=== PATIENT | female | born 1960 | race Caucasian/White ===

== ENCOUNTER → 2023-10-15 14:45 | Outpatient (REF) | payer OTHER, SELFPAY | LOC: RAD 14:45 | PROVIDERS: ATTENDING PHYSICIAN Nurse Practitioner Adult Health; FAMILY PHYSICIAN Family Medicine | DX: C50.512 Malignant neoplasm of lower-outer quadrant of left female breast (principal); M81.8 Other osteoporosis without current pathological fracture | CPT/HCPCS: 93971 ==

== ENCOUNTER → 2023-10-20 10:29 | Outpatient (REF) | payer OTHER, SELFPAY | LOC: WDC 10:29 | PROVIDERS: ATTENDING PHYSICIAN Nurse Practitioner Adult Health; FAMILY PHYSICIAN Family Medicine | DX: Z85.3 Personal history of malignant neoplasm of breast (principal); C50.512 Malignant neoplasm of lower-outer quadrant of left female breast; R59.9 Enlarged lymph nodes, unspecified | CPT/HCPCS: 76642 ==

== ENCOUNTER → 2023-10-21 12:11 | Outpatient (REF) | payer OTHER, SELFPAY | LOC: HWRAD 12:11 | PROVIDERS: ATTENDING PHYSICIAN Nurse Practitioner Adult Health; FAMILY PHYSICIAN Family Medicine; REFERRING PHYSICIAN Family Medicine | DX: C50.512 Malignant neoplasm of lower-outer quadrant of left female breast (principal); M81.8 Other osteoporosis without current pathological fracture | CPT/HCPCS: 71260; 74177; Q9967 ==

== ENCOUNTER → 2023-10-27 07:55 | Outpatient (REF) | payer OTHER, SELFPAY | LOC: WDC 07:55 | PROVIDERS: ATTENDING PHYSICIAN Nurse Practitioner Adult Health | DX: N63.32 Unspecified lump in axillary tail of the left breast (principal) | CPT/HCPCS: 88305; 19083; 88341; 88342; 88360; A4648 ==

== ENCOUNTER → 2023-11-04 09:54 | Outpatient (REF) | payer OTHER, SELFPAY | LOC: RCS 09:54 | PROVIDERS: ATTENDING PHYSICIAN Internal Medicine Hematology & Oncology; FAMILY PHYSICIAN Family Medicine | DX: Z51.11 Encounter for antineoplastic chemotherapy (principal) | CPT/HCPCS: 93306; 93356 ==

== ENCOUNTER → 2023-11-08 09:48 | Outpatient (REF) | payer OTHER, SELFPAY | LOC: PET 09:48 | PROVIDERS: ATTENDING PHYSICIAN Internal Medicine Hematology & Oncology | DX: C50.512 Malignant neoplasm of lower-outer quadrant of left female breast (principal) | CPT/HCPCS: 78815; A9552 ==

== ENCOUNTER → 2023-11-27 07:52 | Outpatient (REF) | payer OTHER, SELFPAY | LOC: MRI 07:52 | PROVIDERS: ATTENDING PHYSICIAN Internal Medicine Hematology & Oncology; FAMILY PHYSICIAN Family Medicine | DX: C50.512 Malignant neoplasm of lower-outer quadrant of left female breast (principal); M81.8 Other osteoporosis without current pathological fracture; C78.7 Secondary malignant neoplasm of liver and intrahepatic bile duct; C79.51 Secondary malignant neoplasm of bone | CPT/HCPCS: 70553; A9575 ==

== ENCOUNTER → 2023-12-01 07:31 | Outpatient (REF) | payer OTHER, SELFPAY | LOC: RAD 07:31 | PROVIDERS: ATTENDING PHYSICIAN Internal Medicine Hematology & Oncology; FAMILY PHYSICIAN Physician Assistant Medical | DX: C50.512 Malignant neoplasm of lower-outer quadrant of left female breast (principal); M81.8 Other osteoporosis without current pathological fracture; C78.7 Secondary malignant neoplasm of liver and intrahepatic bile duct; C79.51 Secondary malignant neoplasm of bone | CPT/HCPCS: 76700 ==

== ENCOUNTER → 2023-12-16 15:15 | Outpatient (REF) | payer OTHER, SELFPAY | LOC: RAD 15:15 | PROVIDERS: ATTENDING PHYSICIAN Nurse Practitioner Family; FAMILY PHYSICIAN Family Medicine | DX: R22.32 Localized swelling, mass and lump, left upper limb (principal) | CPT/HCPCS: 93971 ==

== ENCOUNTER 2024-01-04 06:53 | Outpatient (RCR) | payer OTHER, SELFPAY | END 2024-01-04 23:59 | disposition home or self-care (01) | LOC: RPT 06:53 | PROVIDERS: ATTENDING PHYSICIAN Internal Medicine Hematology & Oncology; FAMILY PHYSICIAN Family Medicine | DX: C50.512 Malignant neoplasm of lower-outer quadrant of left female breast (principal); I97.2 Postmastectomy lymphedema syndrome; Z73.6 Limitation of activities due to disability | CPT/HCPCS: 97163; 97530; 97535 ==

== ENCOUNTER → 2024-01-26 10:48 | Outpatient (REF) | payer OTHER, SELFPAY | LOC: PET 10:48 | PROVIDERS: ATTENDING PHYSICIAN Internal Medicine Hematology & Oncology | DX: C50.512 Malignant neoplasm of lower-outer quadrant of left female breast (principal) | CPT/HCPCS: 78815; A9552 ==

== ENCOUNTER 2024-01-31 10:09 | Outpatient (RCR) | payer OTHER, SELFPAY | END 2024-01-31 23:59 | disposition home or self-care (01) | LOC: RPT 10:09 | PROVIDERS: ATTENDING PHYSICIAN Internal Medicine Hematology & Oncology; FAMILY PHYSICIAN Family Medicine | DX: I97.2 Postmastectomy lymphedema syndrome (principal); C50.512 Malignant neoplasm of lower-outer quadrant of left female breast; Z73.6 Limitation of activities due to disability | CPT/HCPCS: 29584; 97140; 97530; 97535 ==

== ENCOUNTER → 2024-03-02 08:19 | Outpatient (REF) | payer OTHER, SELFPAY | LOC: MRI 08:19 | PROVIDERS: ATTENDING PHYSICIAN Internal Medicine Hematology & Oncology; FAMILY PHYSICIAN Family Medicine | DX: C50.512 Malignant neoplasm of lower-outer quadrant of left female breast (principal); M81.8 Other osteoporosis without current pathological fracture; C78.7 Secondary malignant neoplasm of liver and intrahepatic bile duct; C79.51 Secondary malignant neoplasm of bone; R22.32 Localized swelling, mass and lump, left upper limb | CPT/HCPCS: 74183; A9575 ==

== ENCOUNTER → 2024-03-08 17:04 | Outpatient (REF) | payer OTHER, SELFPAY | LOC: RCS 17:04 | PROVIDERS: ATTENDING PHYSICIAN Internal Medicine Hematology & Oncology; FAMILY PHYSICIAN Family Medicine | DX: C50.512 Malignant neoplasm of lower-outer quadrant of left female breast (principal); M81.8 Other osteoporosis without current pathological fracture; C78.7 Secondary malignant neoplasm of liver and intrahepatic bile duct; C79.51 Secondary malignant neoplasm of bone; R22.32 Localized swelling, mass and lump, left upper limb | CPT/HCPCS: 93306 ==

== ENCOUNTER → 2024-06-09 09:39 | Outpatient (REF) | payer OTHER, SELFPAY | LOC: PET 09:39 | PROVIDERS: ATTENDING PHYSICIAN Internal Medicine Hematology & Oncology | DX: C50.512 Malignant neoplasm of lower-outer quadrant of left female breast (principal) | CPT/HCPCS: 78815; A9552 ==

== ENCOUNTER → 2024-09-04 09:55 | Outpatient (REF) | payer OTHER, SELFPAY ==
[2024-09-04 10:24] VITALS: BP 121/87; BP_SYST 87
[2024-09-04 12:05] VITALS: BP 103/76; BP_SYST 79
[2024-09-04 13:01] LABS: Body Fluid Mononuclear 83.3 %; Body Fluid Polymorphonuclear 16.7 %; Body Fluid WBC 186 /CUMM
[2024-09-04 13:24] LABS: Body Fluid Second Tech CF
[2024-09-04 15:26] LABS: Body Fluid Albumin < 1.0 g/dl
== END ==
LOC: RADI 09:55
PROVIDERS: ATTENDING PHYSICIAN Internal Medicine Hematology & Oncology; FAMILY PHYSICIAN Family Medicine
DX: R18.8 Other ascites (principal); Z85.3 Personal history of malignant neoplasm of breast
CPT/HCPCS: 88305; 49083; 82042; 88112; 88341; 88342; 88360; 89051

== ENCOUNTER → 2024-09-18 08:04 | Outpatient (REF) | payer OTHER, SELFPAY | LOC: PET 08:04 | PROVIDERS: ATTENDING PHYSICIAN Internal Medicine Hematology & Oncology | DX: C50.512 Malignant neoplasm of lower-outer quadrant of left female breast (principal) | CPT/HCPCS: 78815; A9552 ==

== ENCOUNTER → 2024-09-22 12:20 | Outpatient (REF) | payer OTHER, SELFPAY ==
[2024-09-22 12:45] VITALS: BP 109/84; BP_SYST 90
[2024-09-22 14:45] LABS: Body Fluid Albumin < 1.0 g/dl
[2024-09-22 15:15] LABS: Body Fluid Mononuclear 87.8 %; Body Fluid Polymorphonuclear 12.2 %; Body Fluid WBC 147 /CUMM
[2024-09-22 15:16] LABS: Body Fluid Second Tech FB
== END ==
LOC: RADI 12:20
PROVIDERS: ATTENDING PHYSICIAN Internal Medicine Hematology & Oncology; FAMILY PHYSICIAN Physician Assistant Medical
DX: C80.1 Malignant (primary) neoplasm, unspecified (principal); R18.0 Malignant ascites
CPT/HCPCS: 88305; 49083; 82042; 88112; 88341; 88342; 88360; 89051

== ENCOUNTER → 2024-09-26 10:12 | Outpatient (REF) | payer OTHER, SELFPAY | LOC: RCS 10:12 | PROVIDERS: ATTENDING PHYSICIAN Internal Medicine Hematology & Oncology; FAMILY PHYSICIAN Physician Assistant Medical | DX: M81.8 Other osteoporosis without current pathological fracture (principal); C79.51 Secondary malignant neoplasm of bone; C78.7 Secondary malignant neoplasm of liver and intrahepatic bile duct; R22.32 Localized swelling, mass and lump, left upper limb; D63.0 Anemia in neoplastic disease | CPT/HCPCS: 93306; 93356 ==

== ENCOUNTER → 2024-09-28 08:58 | Outpatient (REF) | payer OTHER, SELFPAY ==
[2024-09-28 09:15] VITALS: BP 109/72; BP_SYST 74; BMI 23.2
[2024-09-28] MEDS: ANCEF 5 IV (09:42)
[2024-09-28 11:00] VITALS: BP 100/67; BP 104/67; BP_SYST 86
== END ==
LOC: RADI 08:58
PROVIDERS: ATTENDING PHYSICIAN Internal Medicine Hematology & Oncology; FAMILY PHYSICIAN Physician Assistant Medical
DX: C50.512 Malignant neoplasm of lower-outer quadrant of left female breast (principal); C79.51 Secondary malignant neoplasm of bone; C78.7 Secondary malignant neoplasm of liver and intrahepatic bile duct
CPT/HCPCS: 36561; 76937; 77001; 99152; 99153

== ENCOUNTER → 2024-10-10 10:28 | Outpatient (REF) | payer OTHER, SELFPAY | LOC: MRI 10:28 | PROVIDERS: ATTENDING PHYSICIAN Student in an Organized Health Care Education/Training Program; FAMILY PHYSICIAN Physician Assistant Medical | DX: R79.89 Other specified abnormal findings of blood chemistry (principal) | CPT/HCPCS: 76391 ==

== ENCOUNTER → 2024-10-16 08:46 | Outpatient (REF) | payer OTHER, SELFPAY | LOC: MRI 08:46 | PROVIDERS: ATTENDING PHYSICIAN Student in an Organized Health Care Education/Training Program; FAMILY PHYSICIAN Physician Assistant Medical | DX: R79.89 Other specified abnormal findings of blood chemistry (principal); C78.7 Secondary malignant neoplasm of liver and intrahepatic bile duct; C50.919 Malignant neoplasm of unspecified site of unspecified female breast | CPT/HCPCS: 74183; A9575 ==

== ENCOUNTER → 2024-10-17 09:04 | Outpatient (REF) | payer OTHER, SELFPAY ==
[2024-10-17 09:20] VITALS: BP 103/68; BP_SYST 81
[2024-10-17 10:00] VITALS: BP 106/68
[2024-10-17 12:03] LABS: Body Fluid Mononuclear 88.7 %; Body Fluid Polymorphonuclear 11.3 %; Body Fluid WBC 98 /CUMM
[2024-10-17 12:04] LABS: Body Fluid Second Tech CF
== END ==
LOC: RADI 09:04
PROVIDERS: ATTENDING PHYSICIAN Internal Medicine Hematology & Oncology; FAMILY PHYSICIAN Family Medicine
DX: C80.1 Malignant (primary) neoplasm, unspecified (principal); R18.0 Malignant ascites
CPT/HCPCS: 49083; 87015; 87070; 87205; 88112; 89051

== ENCOUNTER → 2024-10-18 10:06 | Outpatient (REF) | payer OTHER, SELFPAY ==
[2024-10-18 10:33] LABS: % Basophils 1.1 % (0-2); % Eosinophils 3.6 % (0-6); % Immature Granulocytes 0.7 % (0-0.5); % Lymphocytes 34.2 % (20.5-51.1); % Monocytes 12.4 % (1.7-9.3); Absolute Eosinophils 0.1 10^3/uL (0-0.7); Absolute Lymphocytes 0.9 10^3/uL (1.2-3.4); Absolute Monocytes 0.3 10^3/uL (0.1-0.6); Absolute Neutrophils 1.3 10^3/uL (1.4-6.5); Hematocrit 32.5 % (37.0-47.0); Hemoglobin 10.8 g/dL (12.0-16.0); Mean Corp Hgb Conc. 33.2 g/dL (33.0-37.0); Mean Corpuscular Hgb 33.9 pg (27.0-31.0); Mean Corpuscular Volume 101.9 fL (81.0-99.0); Mean Platelet Volume 10.7 fL (7.4-10.4); Nucleated Red Blood Cells % 0 %; Platelet Count 191 10^3/uL (130-400); Red Blood Cell Count 3.19 10^6/uL (4.20-5.40); Red Cell Dist. Width 14.1 % (11.5-14.5); White Blood Cell Count 2.8 10^3/uL (4.8-10.8)
[2024-10-18 10:46] LABS: ALT (SGPT) 39 U/L (0-35); AST (SGOT) 52 U/L (14-36); Albumin 2.8 g/dl (3.5-5.0); Alkaline Phosphatase 294 U/L (38-126); Blood Urea Nitrogen 14 mg/dl (7-17); Calcium 8.3 mg/dl (8.4-10.2); Carbon Dioxide 27 mmol/L (22-30); Chloride 111 mmol/L (98-107); Glucose 122 mg/dl (70-99); Potassium 3.5 mmol/L (3.5-5.1); Sodium 140 mmol/L (135-145); Total Bilirubin 1.1 mg/dl (0.2-1.3); Total Protein 5.9 g/dl (6.3-8.2); eGFR > 60.00
== END ==
LOC: REG 10:06
PROVIDERS: ATTENDING PHYSICIAN Internal Medicine Hematology & Oncology; FAMILY PHYSICIAN Family Medicine
DX: C50.512 Malignant neoplasm of lower-outer quadrant of left female breast (principal); M81.8 Other osteoporosis without current pathological fracture; C79.51 Secondary malignant neoplasm of bone; C78.7 Secondary malignant neoplasm of liver and intrahepatic bile duct; R22.32 Localized swelling, mass and lump, left upper limb; D63.0 Anemia in neoplastic disease
CPT/HCPCS: 36415; 80053; 85025

== ENCOUNTER → 2024-12-27 17:22 | Outpatient (REF) | payer OTHER, SELFPAY | LOC: RCS 17:22 | PROVIDERS: ATTENDING PHYSICIAN Internal Medicine Hematology & Oncology; FAMILY PHYSICIAN Physician Assistant Medical | DX: C79.51 Secondary malignant neoplasm of bone (principal); C78.7 Secondary malignant neoplasm of liver and intrahepatic bile duct; R22.32 Localized swelling, mass and lump, left upper limb; D63.0 Anemia in neoplastic disease; C50.512 Malignant neoplasm of lower-outer quadrant of left female breast; M81.8 Other osteoporosis without current pathological fracture | CPT/HCPCS: 93306 ==

== ENCOUNTER → 2025-01-24 08:41 | Outpatient (REF) | payer OTHER, SELFPAY | LOC: PET 08:41 | PROVIDERS: ATTENDING PHYSICIAN Internal Medicine Hematology & Oncology | DX: C50.512 Malignant neoplasm of lower-outer quadrant of left female breast (principal) | CPT/HCPCS: 78815; A9552 ==

== ENCOUNTER → 2025-04-12 14:32 | Outpatient (REF) | payer OTHER, SELFPAY ==
[2025-04-12 10:55] LABS: Hematocrit 35.8 % (37.0-47.0); Hemoglobin 12.0 g/dL (12.0-16.0); Mean Corp Hgb Conc. 33.5 g/dL (33.0-37.0); Mean Corpuscular Volume 94.7 fL (81.0-99.0); Platelet Count 171 10^3/uL (130-400); Red Cell Dist. Width 15.4 % (11.5-14.5)
== END ==
LOC: OIDL 14:32
PROVIDERS: ATTENDING PHYSICIAN Nurse Practitioner Acute Care
DX: C50.512 Malignant neoplasm of lower-outer quadrant of left female breast (principal); M81.8 Other osteoporosis without current pathological fracture; C79.51 Secondary malignant neoplasm of bone; C78.7 Secondary malignant neoplasm of liver and intrahepatic bile duct; R22.32 Localized swelling, mass and lump, left upper limb; D63.0 Anemia in neoplastic disease
CPT/HCPCS: 85025

== ENCOUNTER → 2025-05-12 09:35 | Outpatient (REF) | payer OTHER, SELFPAY | LOC: RCS 09:35 | PROVIDERS: ATTENDING PHYSICIAN Internal Medicine Hematology & Oncology; FAMILY PHYSICIAN Family Medicine | DX: C50.512 Malignant neoplasm of lower-outer quadrant of left female breast (principal); M81.8 Other osteoporosis without current pathological fracture; C79.51 Secondary malignant neoplasm of bone; C78.7 Secondary malignant neoplasm of liver and intrahepatic bile duct; R22.32 Localized swelling, mass and lump, left upper limb; D63.0 Anemia in neoplastic disease | CPT/HCPCS: 93306; 93356 ==

== ENCOUNTER → 2025-05-21 08:50 | Outpatient (REF) | payer OTHER, SELFPAY | LOC: PET 08:50 | PROVIDERS: ATTENDING PHYSICIAN Internal Medicine Hematology & Oncology | DX: C50.512 Malignant neoplasm of lower-outer quadrant of left female breast (principal) | CPT/HCPCS: 78815; A9552 ==